=== PATIENT | female | born 1985 | race Caucasian/White ===

== ENCOUNTER 2018-04-16 09:11 | Emergency (ER) | payer OTHER ==
[~2018-04-16] VITALS: Ht 167.6 cm; Wt 61.7 kg
[~2018-04-16 09:11] MED LIST: TYLENOL-CODEINE1 TAB PO
== END 2018-04-16 11:57 | disposition home or self-care (01) ==
LOC: ER 09:11
DX: O20.0 Threatened abortion (principal); Z34.81 Encounter for supervision of other normal pregnancy, first trimester

== ENCOUNTER 2018-09-25 14:15 | Inpatient (IN) | payer OTHER ==
[~2018-09-25] VITALS: Ht 167.6 cm; Wt 81.6 kg
[2018-09-28] MEDS ORDERED: PRENATAL FORMU1 EAC1 PO (11:14)
[2018-09-30] MEDS ORDERED: DOCUSATE SODIU100 MG PO (07:56)
== END 2018-09-30 12:10 | DRG 807 ==
LOC: OB/GYN 14:15 → LDR 09-28 09:24 → OB/GYN 09-28 09:24
PROVIDERS: ADMIT Obstetrics & Gynecology
PROC: 10E0XZZ Delivery of Products of Conception, External Approach (ICD-10-PCS; principal; 2018-09-28)
PROC: 10907ZC Drainage of Amniotic Fluid, Therapeutic from Products of Conception, Via Natural or Artificial Opening (ICD-10-PCS; 2018-09-28)
PROC: 4A1HXCZ Monitoring of Products of Conception, Cardiac Rate, External Approach (ICD-10-PCS; 2018-09-28)
DX: O80 Encounter for full-term uncomplicated delivery (principal); Z37.0 Single live birth; Z3A.38 38 weeks gestation of pregnancy